=== PATIENT | male | born 1955 ===

== ENCOUNTER 2016-09-03 14:17 | Inpatient (IN) | payer OTHER ==
[~2016-09-03] VITALS: Ht 182.9 cm; Wt 103.0 kg
[2016-09-03 16:53] VITALS: BP_SYST 154; BP_SYST 158; RESP 18; TEMP 97.4
[2016-09-03 16:55] VITALS: Ht 182.9 cm; Wt 103.0 kg
[2016-09-03] MEDS ORDERED: SALINE FLUSH 10 ML FLUSH PRN (17:30)
[2016-09-03] MEDS ORDERED: GUAIFEN/DM 10 ML UDC PO PRN (17:30)
[2016-09-03] MEDS ORDERED: NICOTINE 21 MG/24 HR TRANSDERM PRN (17:30)
[2016-09-03] MEDS ORDERED: GLUCAGON 1 MG VIAL IM PRN (17:30)
[2016-09-03] MEDS ORDERED: BISACODYL EC 5 MG TAB PO PRN (17:30)
[2016-09-03] MEDS ORDERED: BISACODYL 10 MG SUPP RECTAL PRN (17:30)
[2016-09-03] MEDS ORDERED: MAG HYDROX 30 ML UDC PO PRN (17:30)
[2016-09-03] MEDS ORDERED: ACETAMINOPHEN 325 MG TAB PO PRN (17:30)
[2016-09-03] MEDS ORDERED: DEXTROSE 50% SYRINGE 50 ML IV PRN (17:30)
[2016-09-03] MEDS ORDERED: ALU/MAG/SIM 30 ML UDC PO PRN (17:30)
[2016-09-03] MEDS: DUONEB INH SCH ×2 (17:40→23:12)
[2016-09-03 17:46] VITALS: RESP 20
[2016-09-03] MEDS ORDERED: PHARMACY TO DOSE VANCOMYCIN IV SCH (18:00)
[2016-09-03] MEDS: MDI-SPIRIVA 5 DOSES INH SCH (18:00)
[2016-09-03] MEDS: DIAZEPAM 5 MG TAB PO SCH ×2 (18:00→20:06)
[2016-09-03] MEDS ORDERED: VANCOMYCIN 2,000 MG in SODIUM CHLORIDE 0.9% 500 ML IV ONE (18:55)
[2016-09-03 19:28] VITALS: BP_SYST 156; RESP 18; TEMP 97.4
[2016-09-03] MEDS: LEVOFLOXACIN 750 MG/150 ML 150 ML IV SCH (19:49)
[2016-09-03] MEDS: PANTOPRAZOLE 40 MG TAB PO SCH (20:06)
[2016-09-03] MEDS: MONTELUKAST 10 MG TAB PO SCH (20:07)
[2016-09-03] MEDS: TAMSULOSIN 0.4 MG CAP PO SCH (20:07)
[2016-09-03] MEDS: Ascorbic Acid 500 MG TAB PO SCH (20:07)
[2016-09-03] MEDS: CYANOCOBA 500 MCG TAB PO SCH (20:07)
[2016-09-03] MEDS: SALINE FLUSH 10 ML FLUSH SCH (20:08)
[2016-09-03] MEDS: DIVALPROEX DR 500 MG TAB PO SCH (20:08)
[2016-09-03] MEDS: METOPROLOL XL 50 MG TAB PO SCH (20:08)
[2016-09-03] MEDS: ZOLPIDEM 5 MG TAB PO PRN (20:19)
[2016-09-03] MEDS: DILAUDID 1 MG/ML AMP IV PRN (20:20)
[2016-09-03] MEDS: ENOXAPARIN 40 MG/0.4 ML SYR SUBQ SCH (20:33)
[2016-09-04] VITALS (8 sets, daily range): BP systolic 129–166; RESP 18; TEMP 97.6–98.2
[2016-09-04] MEDS: DUONEB INH SCH ×6 (02:38→23:18)
[2016-09-04] MEDS: DILAUDID 1 MG/ML AMP IV PRN ×4 (04:15→23:32)
[2016-09-04] MEDS: MDI-SPIRIVA 5 DOSES INH SCH (06:02)
[2016-09-04] MEDS: SODIUM CHLORIDE 0.9% FLUSH BAG 500 ML IV SCH (06:46)
[2016-09-04] MEDS: PANTOPRAZOLE 40 MG TAB PO SCH (06:46)
[2016-09-04] MEDS: SALINE FLUSH 10 ML FLUSH SCH ×2 (07:56→21:48)
[2016-09-04] MEDS: VANCOMYCIN 1,500 MG in SODIUM CHLORIDE 0.9% 250 ML IV SCH ×2 (07:57→21:47)
[2016-09-04] MEDS: DIVALPROEX DR 500 MG TAB PO SCH ×2 (09:31→21:48)
[2016-09-04] MEDS: TAMSULOSIN 0.4 MG CAP PO SCH (09:31)
[2016-09-04] MEDS: CYANOCOBA 500 MCG TAB PO SCH (09:31)
[2016-09-04] MEDS: Ascorbic Acid 500 MG TAB PO SCH (09:31)
[2016-09-04] MEDS: DIAZEPAM 5 MG TAB PO SCH ×3 (09:33→21:48)
[2016-09-04] MEDS: ENOXAPARIN 40 MG/0.4 ML SYR SUBQ SCH (09:33)
[2016-09-04] MEDS: LEVOFLOXACIN 750 MG/150 ML 150 ML IV SCH (09:34)
[2016-09-04] MEDS: METOPROLOL XL 50 MG TAB PO SCH ×2 (09:34→21:48)
[2016-09-04] MEDS ORDERED: MAGNEVIST 20ML IV ONE (21:10)
[2016-09-04] MEDS: METHYLPRED SOD SUCC 125 MG/2 ML VIAL IV SCH ×2 (21:47→23:31)
[2016-09-04] MEDS: MONTELUKAST 10 MG TAB PO SCH (21:48)
[2016-09-04] MEDS: ZOLPIDEM 5 MG TAB PO PRN (21:57)
[2016-09-05] MEDS: DUONEB INH SCH ×6 (02:16→23:44)
[2016-09-05 03:46] VITALS: BP_SYST 111; RESP 16; TEMP 98.5
[2016-09-05] MEDS: SODIUM CHLORIDE 0.9% FLUSH BAG 500 ML IV SCH (06:11)
[2016-09-05] MEDS: PANTOPRAZOLE 40 MG TAB PO SCH (06:12)
[2016-09-05] MEDS: METHYLPRED SOD SUCC 125 MG/2 ML VIAL IV SCH ×3 (06:12→16:04)
[2016-09-05] MEDS: MDI-SPIRIVA 5 DOSES INH SCH (06:23)
[2016-09-05] MEDS: DILAUDID 1 MG/ML AMP IV PRN ×3 (06:24→19:45)
[2016-09-05] MEDS: VANCOMYCIN 1,500 MG in SODIUM CHLORIDE 0.9% 250 ML IV SCH ×2 (09:14→19:45)
[2016-09-05] MEDS: LEVOFLOXACIN 750 MG/150 ML 150 ML IV SCH (09:15)
[2016-09-05] MEDS: TAMSULOSIN 0.4 MG CAP PO SCH (09:17)
[2016-09-05] MEDS: SALINE FLUSH 10 ML FLUSH SCH ×2 (09:17→19:46)
[2016-09-05] MEDS: CYANOCOBA 500 MCG TAB PO SCH (09:17)
[2016-09-05] MEDS: METOPROLOL XL 50 MG TAB PO SCH ×2 (09:17→19:46)
[2016-09-05] MEDS: DIVALPROEX DR 500 MG TAB PO SCH ×2 (09:17→19:46)
[2016-09-05] MEDS: DIAZEPAM 5 MG TAB PO SCH ×3 (09:24→19:46)
[2016-09-05] MEDS: Ascorbic Acid 500 MG TAB PO SCH (09:24)
[2016-09-05] MEDS: ENOXAPARIN 40 MG/0.4 ML SYR SUBQ SCH (09:37)
[2016-09-05 11:37] VITALS: BP_SYST 123; RESP 16; TEMP 97.2
[2016-09-05 15:21] VITALS: BP_SYST 127; RESP 18; TEMP 97.6
[2016-09-05] MEDS ORDERED: MISSING DOSE XX ONE ×2 (16:00→20:00)
[2016-09-05] MEDS: MONTELUKAST 10 MG TAB PO SCH (19:46)
[2016-09-05] MEDS: GUAIFEN/DM 10 ML UDC PO PRN (20:07)
[2016-09-05 20:14] VITALS: BP_SYST 119; RESP 18; TEMP 97.7
[2016-09-05] MEDS: ZOLPIDEM 5 MG TAB PO PRN (22:49)
[2016-09-05 23:01] VITALS: BP_SYST 122; RESP 20; TEMP 98.3
[2016-09-06] MEDS: METHYLPRED SOD SUCC 125 MG/2 ML VIAL IV SCH ×3 (00:46→12:25)
[2016-09-06] MEDS: DILAUDID 1 MG/ML AMP IV PRN ×2 (00:47→08:43)
[2016-09-06 03:11] VITALS: BP_SYST 139; RESP 20; TEMP 98.2
[2016-09-06] MEDS: DUONEB INH SCH ×4 (03:19→14:28)
[2016-09-06] MEDS: GUAIFEN/DM 10 ML UDC PO PRN (03:35)
[2016-09-06] MEDS: VANCOMYCIN 1,500 MG in SODIUM CHLORIDE 0.9% 250 ML IV SCH ×2 (03:35→12:42)
[2016-09-06] MEDS: SODIUM CHLORIDE 0.9% FLUSH BAG 500 ML IV SCH (05:52)
[2016-09-06] MEDS: PANTOPRAZOLE 40 MG TAB PO SCH (05:53)
[2016-09-06] MEDS: MDI-SPIRIVA 5 DOSES INH SCH (07:19)
[2016-09-06 08:12] VITALS: BP_SYST 127; RESP 18; TEMP 97.9
[2016-09-06] MEDS: SALINE FLUSH 10 ML FLUSH SCH (08:42)
[2016-09-06] MEDS: ENOXAPARIN 40 MG/0.4 ML SYR SUBQ SCH (08:46)
[2016-09-06] MEDS: DIVALPROEX DR 500 MG TAB PO SCH (08:47)
[2016-09-06] MEDS: CYANOCOBA 500 MCG TAB PO SCH (08:47)
[2016-09-06] MEDS: METOPROLOL XL 50 MG TAB PO SCH (08:48)
[2016-09-06] MEDS: Ascorbic Acid 500 MG TAB PO SCH (08:48)
[2016-09-06] MEDS: LEVOFLOXACIN 750 MG/150 ML 150 ML IV SCH (08:48)
[2016-09-06] MEDS: TAMSULOSIN 0.4 MG CAP PO SCH (08:48)
[2016-09-06] MEDS: DIAZEPAM 5 MG TAB PO SCH ×2 (08:54→15:48)
[2016-09-06 12:41] VITALS: BP_SYST 143; RESP 18; TEMP 97.6
[2016-09-06] MEDS ORDERED: PREDNISONE 20 MG TAB PO SCH (14:10)
[2016-09-06] MEDS ORDERED: FLUCONAZOLE 100 MG TAB PO SCH (14:10)
[2016-09-06] MEDS ORDERED: BENZONATATE 100 MG CAP PO PRN (14:10)
[2016-09-06] MEDS ORDERED: Hydrocodone/APAP 10/325 MG TAB PO PRN (14:35)
[2016-09-06 14:53] VITALS: BP_SYST 143; RESP 18; TEMP 97.6
== END 2016-09-06 18:17 | disposition home or self-care (01) | DRG 189 ==
LOC: ENRESERVDT → ENRESERVTM → ENPENDDIS 16:45 → PCU2 16:45 → MC2 09-04 13:11 → PCU2 09-04 13:17
PROVIDERS: ADMIT Hospitalist; ATTEND Hospitalist
DX: J96.00 Acute respiratory failure, unspecified whether with hypoxia or hypercapnia (principal); J16.8 Pneumonia due to other specified infectious organisms; Z99.81 Dependence on supplemental oxygen; J44.0 Chronic obstructive pulmonary disease with (acute) lower respiratory infection; J44.1 Chronic obstructive pulmonary disease with (acute) exacerbation; F11.20 Opioid dependence, uncomplicated; I10 Essential (primary) hypertension; K21.9 Gastro-esophageal reflux disease without esophagitis; G89.4 Chronic pain syndrome; F41.9 Anxiety disorder, unspecified; E53.8 Deficiency of other specified B group vitamins; N40.0 Benign prostatic hyperplasia without lower urinary tract symptoms; M47.9 Spondylosis, unspecified; Z79.52 Long term (current) use of systemic steroids
CPT/HCPCS: 36600; 71010; 72156; 80048; 80053; 80202; 82550; 82803; 82947; 83880; 84439; 84443; 84484; 85025; 85652; 86141; 87040; 87071; 87278; 87299; 87804; 94640; 94799; 99223; 99233; 99238